=== PATIENT | male | born 1955 | race Caucasian/White ===

== ENCOUNTER 2018-11-03 08:44 | Day surgery (SDC) | payer BC ==
[2018-10-30 11:17] LABS: Absolute Monocytes 0.9 K/uL (0.1-1.3); Absolute Neutrophil 5.7 K/uL (1.8-8.0); Basophils % 0.6 % (0-1.3); Eosinophils % 2.1 % (0-4.4); Hematocrit 44.2 % (39.6-49.0); MPV 9.4 fL (7.6-11.3); RBC Red Blood Cell Count 4.82 M/uL (4.33-5.43)
[2018-10-30 11:22] LABS: Urine Appearance CLEAR; Urine Bilirubin NEGATIVE (NEG); Urine Blood 3+ (NEG); Urine Color YELLOW; Urine Glucose NEGATIVE (NEG); Urine Protein NEGATIVE (NEG); Urine Specific Gravity <=1.005 (1.005-1.030); Urine Urobilinogen 0.2 mg/dL (0.2-1.0)
[2018-10-30 11:24] LABS: Protime INR 1.04
--- NOTE | 2018-10-30 11:31 | RAD REPORT ---
EXAM DESCRIPTION: Dayna Forrest (2 Views)10/30/2018 11:22 am CLINICAL HISTORY: Preop for bladder surgery/hypertension COMPARISON: None FINDINGS: The lungs appear clear of acute infiltrate. The heart is normal size IMPRESSION: No acute abnormalities displayed
[2018-10-30 12:07] LABS: Urine Bacteria <20 /HPF (NONE SEEN)
[2018-10-30 12:08] LABS: Urine Culture Reflex Order NOT NEEDED
--- NOTE | 2018-10-31 09:05 | EKG ---
Test Date: 2018-10-30 Test Time: 11:06:40 Commercial Loan Specialist: MAG MEASUREMENT RESULTS: Intervals: Rate: 59 WI: 142 QRSD: 90 QT: 408 QTc: 403 [place]: P: 66 WI: 142 QRS: 62 T: 56 INTERPRETIVE STATEMENTS: Sinus bradycardia Nonspecific T wave abnormality Abnormal ECG No previous ECG available for comparison Electronically Signed On 10-31-18 09:01:14 CDT by Alexey Valderrama
[2018-11-03] MEDS ORDERED: GENTAMICIN 80 MG/100 ML BAG 80 MG/100 ML BAG IV ONE (09:33)
[2018-11-03] MEDS ORDERED: Ringers Lactate 1,000 ML IV ONE ×2 (09:33→13:02)
[2018-11-03] MEDS ORDERED: mitoMYcin 40 MG/50 ML SWI SYR IRR ONE (10:00)
[2018-11-03] MEDS ORDERED: FENTANYL CITR 100 MCG/2 ML ONE ×2 (11:33→12:37)
[2018-11-03] MEDS ORDERED: PROPOFOL 200 MG/20 ML VIAL IV ONE (11:34)
[2018-11-03] MEDS ORDERED: MIDAZOLAM HCL 2 MG/2 ML INJ ONE (11:35)
[2018-11-03] MEDS ORDERED: ONDANSETRON 4 MG/2 ML VIAL ONE (11:35)
[2018-11-03] MEDS ORDERED: LIDOCAINE 1% MPF 5 ML VIAL ONE ×2 (11:35)
[2018-11-03] MEDS ORDERED: MEPERIDINE HCL 25 MG/0.5 ML ONE ×2 (13:45→13:59)
[2018-11-03] MEDS ORDERED: HYDROCODONE/APAP 7.5/325 MG TAB ONE (14:41)
[2018-11-03] MEDS ORDERED: OXYBUTYNIN CHLORIDE 5 MG TAB ONE (15:08)
== END 2018-11-03 15:27 | disposition home or self-care (01) ==
LOC: OR 08:44
PROVIDERS: ATTEND Urology
PROC: 3E0K805 Introduction of Other Antineoplastic into Genitourinary Tract, Via Natural or Artificial Opening Endoscopic (ICD-10-PCS; 2018-11-03)
PROC: 0TBB8ZX Excision of Bladder, Via Natural or Artificial Opening Endoscopic, Diagnostic (ICD-10-PCS; principal; 2018-11-03 10:00)
DX: C67.9 Malignant neoplasm of bladder, unspecified (principal); I10 Essential (primary) hypertension; F17.210 Nicotine dependence, cigarettes, uncomplicated; Z79.899 Other long term (current) drug therapy; Z86.73 Personal history of transient ischemic attack (TIA), and cerebral infarction without residual deficits
CPT/HCPCS: 36415; 71046; 80048; 81001; 85025; 85610; 85730; 88305; 93005; J1580; J2175; J2250; J2405; J2704; J3010; J9280

== ENCOUNTER 2019-09-21 12:33 | Inpatient (IN) | payer BC ==
--- OUTSIDE RECORDS SUMMARY | 2019-09-21 12:36 | XMS REPORT ---
:1955 Author Organization [facility] t Address [address] [place] [address] Care Team Providers Name Role Phone PAYTON Unavailable Unavailable Problems This patient has no known problems. Allergies, Adverse Reactions, Alerts This patient has no known allergies or adverse reactions. Medications This patient has no known medications. Results Test Description Test Time Test Comments Text Results Atomic Results Result Comments TISSUE EXAM 2019-03-17 17:15:00 Surgical Pathology Re port Case: [id number] Authorizing Provider: Juan Michel MD Collected: [id number] Ordering Location: [facility] Received: 019 0845 SERVICE S Pathologist: Jaycob Esquivel MD Specimens: A) - Bladder Bi opsy, left side blader biopsy B) - Bladde r Biopsy, Dome, right bladder dome A. BLADDER, LEFT WALL, BIO PSY - MILD CHRONIC INFLAMMATION, NEGATIVE FOR D YSPLASIA OR MALIGNANCYA. BLADDER, RIGHT DOME, BIOPSY - MILD CHRONIC INFLAMMATION, NEGATI VE FOR DYSPLASIA OR MALIGNANCY Signing Path ologist Direct Phone Line: [phone] ally signed by Jaycob Dan MD on 03/17/2019 at 5:15 [id number] X 2Pre and post op diagnosis: malignant neoplasm of overla pping site of bladderA. Left side bladder biopsy; B. Right bladder dome biopsyA. Receiv ed in formalin labeled with the patient's n dennis, accession number and "left side bladder biops y" are four irregular gay-pink nodular tissue rang ing 0.3-0.5 cm which are submitted in toto in A1. B. Received in formalin labeled with the pa rosaline's name, accession number and "bladde r dome biopsy" are two irregular gay nodular ti ssue fragments measuring 0.4 cm and 0.2 cm which are submitted in toto in B1. CG/pl Perform ed. CYTOLOGY 2019-03-16 13:23:00 Medical Cytology Repo rt Case: [id number] Authorizing Provider: Juan Michel MD Collected: 161 Ordering Location: [facility] Received: 0954 SERVICE S Pathologist: Genie Ray MD Specimen: Urine, Bladder Wash URINE, BLADDER WASHING (CYTO SPINS): - NEGATIVE FOR HIGH-GRADE UROTHELIAL MA LIGNANCY - MANY CELL CLUSTERS PRESENT S igning Pathologist Direct Phone Line: [phone] of N MIBC & residual lesion on repeat cystoURINE, BLADDER [id number] mls colorless; 4 cytospinsCo llected: [id number]: [id number] actoryB[facility], [facility] t[facility] of [facility], [address] [place] [address], [facility], [address] [place] [address], [facility], [facility], [address] [place], [place] [id number], CYTOLOGY REQUEST 2019-03-16 11:00:00 Test Item Value Reference Range Comments CYTOLOGY RESULT POINTER (BEAKER) (test code = 2629) See Separate Report [id number] 13:20:00 Test Item Value Reference Range Comments SODIUM (BEAKER) (test code = 136 meq/L 136-145 381) POTASSIUM (BEAKER) (test code = 4.4 meq/L 3.5-5.1 Specimen slightly hemolyzed 379) CHLORIDE (BEAKER) (test code = 105 meq/L 98-107 382) CO2 (BEAKER) (test code = 355) 24 meq/L 22-29 BUN AND [id number] 13:20:00 Test Item Value Reference Range Comments BLOOD UREA NITROGEN 21 mg/dL 7-21 (BEAKER) (test code = 354) CREATININE (FAUZIA) (test 0.94 mg/dL 0.57-1.25 Specim en slightly code = 358) hemolyzed EGFR (FAUZIA) (test code 81 mL/min/1.73 sq m EST IMATED GFR IS NOT = 1092) ACCURATE CREA TININE CLEARANCE IN PRE DICTING GLOMERULAR FILTR ATION RATE. ESTIMATED GFR IS NOT APPLICABLE F OR DIALYSIS PATIENT S. POCT-HEMOGLOBIN [id number] 12:57:00 Test Item Value Reference Range Comments POC-HEMOGLOBIN METER 14.2 g/dL 13.0-16.8 TESTED AT [facility] [address] (FAUZIA) (test code = 1539) [facility] [id number]
[2019-09-21 12:59] LABS: Basophils % 1.3 % (0-1.3); Hematocrit 44.8 % (39.6-49.0); Lymphocytes % 21.9 % (15.3-44.8); MPV 9.1 fL (7.6-11.3); RBC Red Blood Cell Count 4.89 M/uL (4.33-5.43)
[2019-09-21 13:03] LABS: Protime INR 1.01
[2019-09-21 13:10] LABS: BUN Blood Urea Nitrogen 18 mg/dL (7-18); Bicarbonate 27 mmol/L (21-32); Glucose Level 121 mg/dL (74-106); Potassium 4.4 mmol/L (3.5-5.1); Sodium Level 139 mmol/L (136-145); Troponin (Emerg Dept Use Only) < 0.02 ng/mL (0.0-0.045)
--- NOTE | 2019-09-21 13:12 | RAD REPORT ---
EXAM DESCRIPTION: CT - Head C Spine Mpr Wo Con - 09/21/2019 12:56 pm CLINICAL HISTORY: Right arm numbness COMPARISON: None. TECHNIQUE: Computed axial tomography of the head and cervical spine was obtained. Sagittal and coronal reconstruction was performed. All CT scans are performed using dose optimization technique as appropriate and may include automated exposure control or mA/KV adjustment according to patient size. FINDINGS: Moderate low-density is present within deep and subcortical white matter bilaterally proba franc ischemic changes secondary to small vessel disease. A 17 millimeter low-density area is present within the centrum semiovale of the left frontal lobe. An intracranial bleed is not seen. The ventricles are normal in caliber. An extra-axial fluid collect ion is not noted.Fluid within the visualized sinuses and mastoids is not seen A cervical fracture is not visualized. No dislocation is noted. Spondylosis involves C4-5 resulting i n marked right foraminal stenosis. Spondylosis involves C5-6 and C6-7 resulting in moderate foraminal stenosis. IMPRESSION: A 17 millimeter low-density area within the centrum semiovale of the left frontal lobe p robably an infarct. The age is indeterminate. If clinically indicated further evaluation with MRI cou ld be obtained Moderate low-density within deep and subcortical white matter probably ischemic changes secondary to small vessel disease Spondylosis C4-5 resulting in marked right foraminal stenosis
--- NOTE | 2019-09-21 13:23 | RAD REPORT ---
EXAM DESCRIPTION: Dayna Single View09/21/2019 1:18 pm CLINICAL HISTORY: Numbness/weakness COMPARISON: 2018 FINDINGS: The lungs appear clear of acute infiltrate. The heart is normal size IMPRESSION: No acute abnormalities displayed
--- NOTE | 2019-09-21 13:46 | EDPHYS ---
Physician Documentation [facility] Name: Emil Salazar Jr Age: 64 yrs Sex: Male : 1955 Arrival Date: 09/21/2019 Time: 12:37 Bed 5 Private MD: ED Physician Reymundo Patel HPI: 09/20 12:48 This 64 yrs old Male presents to ER via EMS with complaints of Numbness Of rn Hand, Weakness. 12:49 The patient presents to the emergency department with weakness of the right upper rn extremity, paresthesias of the right upper extremity. Onset: The symptoms/episode began/occurred yesterday. Severity of symptoms: At their worst the symptoms were mild in the emergency department the symptoms are unchanged. The patient has experienced a previous episode. Reports RUE weakness and numbness, began yesterday, constant, reports started in hand and spread upwards, no acute vision or speech changes, no difficulty walking. Reports difficulty drinking due to coordination/and or weakness of hand. . Historical: - Allergies: 12:43 No Known Allergies; sv - Home Meds: 12:43 Lisinopril Oral [Active]; sv - PMHx: 12:43 CVA; Hypertension; sv - Immunization history:: Adult Immunizations. - Family history:: not pertinent. - Social history:: Smoking status: . - Hospitalizations: : No recent hospitalization is reported. ROS: 12:49 Constitutional: Negative for fever, chills, and weight loss, Eyes: Negative for injury, rn pain, redness, and discharge, Neck: Negative for injury, pain, and swelling, Cardiovascular: Negative for chest pain, palpitations, and edema, Respiratory: Negative for shortness of breath, cough, wheezing, and pleuritic chest pain, Abdomen/GI: Negative for abdominal pain, nausea, vomiting, diarrhea, and constipation, MS/Extremity: Negative for injury and deformity, Skin: Negative for injury, rash, and discoloration, Neuro: Negative for headache, and seizure. Exam: 12:49 Constitutional: This is a well developed, well nourished patient who is awake, alert, rn and in no acute distress. Hopped out of stretcher and walked to bed. Head/Face: Normocephalic, atraumatic. Eyes: Pupils equal round and reactive to light, extra-ocular motions intact. Lids and lashes normal. Conjunctiva and sclera are non-icteric and not injected. Cornea within normal limits. Periorbital areas with no swelling, redness, or edema. ENT: MMM Cardiovascular: Regular rate and rhythm. No pulse deficits. Respiratory: No increased work of breathing, no retractions or nasal flaring. Abdomen/GI: soft, non-tender Skin: Warm, dry with normal turgor. Normal color with no rashes, no lesions, and no evidence of cellulitis. MS/ Extremity: Pulses equal, no cyanosis. Neuro: Awake and alert, GCS 15, oriented to person, place, time, and situation. Cranial nerves II-XII grossly intact. Motor strength 5/5 in all extremities without drift. Decreased sensation RUE to soft touch and sharp touch. + abnormal coordination on right [id number] and COURTNEY Vital Signs: 12:35 BP 159 / 87; Pulse 63; Resp 12; Temp 98; Pulse Ox 97% ; Pain 0/10; sv 13:37 BP 140 / 83; Pulse 59; Resp 16; Pulse Ox 99% ; sv 14:00 BP 138 / 78; Pulse 57; Resp 16; Pulse Ox 98% ; sv 15:26 BP 130 / 63; Pulse 45; Resp 15; Pulse Ox 100% ; sv 16:30 BP 144 / 90; Pulse 69; Resp 15; Pulse Ox 99% ; sv 17:16 BP 125 / 60; Pulse 60; Resp 17; Pulse Ox 96% ; sv 18:30 BP 140 / 78; Pulse 62; Resp 16; Pulse Ox 97% ; sv 19:29 BP 136 / 78; Pulse 58; Resp 18; Temp 98(O); Pulse Ox 97% on R/A; mg2 NIH Stroke Scale Scores: 12:37 NIHSS Score: 2 sv MDM: 12:38 Patient medically screened. rn 13:42 Data reviewed: vital signs, nurses notes, lab test result(s), EKG, radiologic studies, rn and as a result, I will admit patient. Counseling: I had a detailed discussion with the patient and/or guardian regarding: the historical points, exam findings, and any diagnostic results supporting the discharge/admit diagnosis, lab results, radiology results, the need for further work-up and treatment in the hospital. Admission orders: after a detailed discussion of the patient's condition and case, the admit orders are written by me. ED course: Pt with left sided lesion, appears like age indeterminate stroke, will admit for stroke w/u. Given aspirin/plavix/folic acid. . 09/20 12:39 Order name: Troponin (emerg Dept Use Only); Complete Time: 13:12 rn 09/20 12:39 Order name: Basic Metabolic Panel; Complete Time: 13:12 rn 09/20 12:39 Order name: CBC with Diff; Complete Time: 13:12 rn 09/20 12:39 Order name: Protime (+inr); Complete Time: 13:12 rn 09/20 12:39 Order name: Ptt, Activated; Complete Time: 13:12 rn 09/20 12:52 Order name: Glucose, Ancillary Testing; Complete Time: 13:12 EDKY 09/20 12:39 Order name: XRAY Chest (1 view); Complete Time: 13:26 rn 09/20 14:12 Order name: CBC with Automated Diff EDKY 09/20 14:12 Order name: CBC with Automated Diff EDKY 09/20 14:12 Order name: Comprehensive Metabolic Panel EDKY 09/20 14:12 Order name: Comprehensive Metabolic Panel EDKY 09/20 14:14 Order name: Thyroid Stimulating Hormone EDKY 09/20 14:14 Order name: Lipid Profile EDKY 09/20 14:14 Order name: Lipid Profile EDKY 09/20 12:39 Order name: EKG; Complete Time: 12:40 rn 09/20 12:39 Order name: Accucheck; Complete Time: 12:45 rn 09/20 12:39 Order name: Cardiac monitoring; Complete Time: 12:45 rn 09/20 12:39 Order name: CT Head C Spine; Complete Time: 13:26 rn 09/20 14:06 Order name: Brain With Cont EDKY 09/20 14:11 Order name: CONS Pharmacy Consult EDKY 09/20 14:11 Order name: CONS Physician Consult EDKY 09/20 14:11 Order name: CONS Rehab Consult EDKY 09/20 14:12 Order name: Heart Healthy EDKY 09/20 14:14 Order name: Case Management Consult EDKY 09/20 14:14 Order name: Echo with Doppler EDKY 09/20 14:14 Order name: Carotid Artery Bilateral EDKY 09/20 15:30 Order name: MRI EDKY 09/20 12:39 Order name: EKG - Nurse/Tech; Complete Time: 12:45 rn 09/20 12:39 Order name: IV Saline Lock; Complete Time: 12:45 rn 09/20 12:39 Order name: Labs collected and sent; Complete Time: 12:45 rn 09/20 12:39 Order name: NPO; Complete Time: 12:45 rn 09/20 12:39 Order name: O2 Per Protocol; Complete Time: 12:45 rn 09/20 12:39 Order name: O2 Sat Monitoring; Complete Time: 12:45 rn 09/20 12:39 Order name: Stroke Swallow Screen; Complete Time: 12:45 rn Administered Medications: 13:54 Drug: Aspirin Chewable Tablet 243 mg {Note: pt already took an 81 mg today, ok to give sv [address] Patel.} Route: PO; 14:30 Follow up: Response: No adverse reaction sv 13:54 Drug: PlaVIX 75 mg Route: PO; sv 14:30 Follow up: Response: No adverse reaction sv 13:54 Drug: foLIC Acid 1 mg Route: PO; sv 14:30 Follow up: Response: No adverse reaction sv Disposition: 09/21/19 13:46 Hospitalization ordered by Azucena Tran for Inpatient Admission. Preliminary diagnosis are Weakness, Paresthesia of skin, Ischemic stroke left frontal lobe. - Bed requested for Telemetry/MedSurg (Inpatient). - Status is Inpatient Admission. mg2 - Condition is Stable. - Problem is new. - Symptoms are unchanged. NIH Stroke Scale - NIH Stroke Score Date: 09/21/2019 Time: 12:37 Total Score = 2 1a. Level of Consciousness (LOC) - 0(Alert) 1b. Level of Consciousness (LOC) (Year \T\ Age) - 0(Both) 1c. LOC Commands (Open \T\ Closes Eyes/Plumber) - 0(Both) 2. Best Gaze (Lateral Gaze Paresis) - 0(Normal) 3. Visual Field Loss - 0(No visual loss) 4. Facial Palsy - 0(Normal) 5a. Left Arm: Motor (10-second hold) - 0(No drift) 5b. Right Arm: Motor (10-second hold) - 0(No drift) 6a. Left Leg: Motor (5-second hold - always test supine) - 0(No drift) 6b. Right Leg: Motor (5-second hold - always test supine) - 0(No drift) 7. Limb Ataxia (finger/nose \T\ heel/montero - test with eyes open) - 1(Present in one limb) 8. Sensory Loss (pinprick arms/legs/face) - 1(Mild to moderate loss) 9. Best Language: Aphasia (description/naming/reading) - 0(No aphasia) 10. Dysarthria (speech clarity - read or repeat words) - 0(Normal) 11. Extinction and Inattention (visual/tactile/auditory/spatial/personal) - 0(No abnormality) Initials: sv Signatures: Dispatcher [employer] EDLaurence Hoyos RN RN sv Williams, Irene, RN RN iw Nieto, Roman, MD MD rn Gardose, Michele, RN RN mg2 Corrections: (The following items were deleted from the chart) 18:45 13:46 Hospitalization Ordered by Azucena Tran MD for Inpatient Admission. iw Preliminary diagnosis is Weakness; Paresthesia of skin; Ischemic stroke left frontal lobe. Bed requested for Telemetry/MedSurg (Inpatient). Status is Inpatient Admission. Condition is Stable. Problem is new. Symptoms are unchanged. rn 19:47 18:45 09/21/2019 13:46 Hospitalization Ordered by Azucena Tran MD for mg2 Inpatient Admission. Preliminary diagnosis is Weakness; Paresthesia of skin; Ischemic stroke left frontal lobe. Bed requested for Telemetry/MedSurg (Inpatient). Status is Inpatient Admission. Condition is Stable. Problem is new. Symptoms are unchanged. iw
--- NOTE | 2019-09-21 13:46 | ER ---
Nurse's Notes [facility] Name: Emil Salazar Jr Age: 64 yrs Sex: Male : 1955 Arrival Date: 09/21/2019 Time: 12:37 Bed 5 Private MD: Diagnosis: Weakness;Paresthesia of skin;Ischemic stroke left frontal lobe Presentation: 09/20 12:35 Chief complaint: EMS states: right hand weakness (curling) that started yesterday sv morning. BP 161/76. Coronavirus screen: Proceed with normal triage. Patient denies a cough. Patient denies shortness of breath or difficulty breathing. Patient denies measured and/or subjective temperature greater than 100.4F prior to today's visit. Patient denies travel on a cruise ship or to a country the [facility] currently lists as an affected area. Patient denies contact with known and/or suspected case of COVID-19. Ebola Screen: No symptoms or risks identified at this time. Initial Sepsis Screen: Does the patient meet any 2 criteria? No. Patient's initial sepsis screen is negative. Does the patient have a suspected source of infection? No. Patient's initial sepsis screen is negative. Risk Assessment: Do you want to hurt yourself or someone else? Patient reports no desire to harm self or others. Onset of symptoms was September 20, 2019. 12:35 Method Of Arrival: EMS: [facility] sv 12:35 Acuity: NELSON 3 sv Triage Assessment: 12:35 General: Appears in no apparent distress. comfortable, well developed, Behavior is sv calm, cooperative, appropriate for age. Pain: Denies pain. Neuro: Level of Consciousness is awake, alert, obeys commands, Oriented to person, place, time, situation, Moves all extremities. Full function Gait is steady, Speech is normal, Reports numbness in right arm weakness in right arm. Cardiovascular: Patient's skin is warm and dry. Rhythm is sinus rhythm. Respiratory: Airway is patent Respiratory effort is even, unlabored, Respiratory pattern is regular, symmetrical. Derm: Skin is normal. Historical: - Allergies: 12:43 No Known Allergies; sv - Home Meds: 12:43 Lisinopril Oral [Active]; sv - PMHx: 12:43 CVA; Hypertension; sv - Immunization history:: Adult Immunizations. - Family history:: not pertinent. - Social history:: Smoking status: . - Hospitalizations: : No recent hospitalization is reported. Screenin:37 VAN Screening: Arm Drift: Patient shows no arm weakness. Patient is VAN negative. sv 12:44 Abuse screen: Denies threats or abuse. Denies injuries from another. Nutritional sv screening: No deficits noted. Tuberculosis screening: No symptoms or risk factors identified. Fall Risk None identified. 12:45 Patient has been NPO before screening. The patient is alert, able to follow commands. sv The patient does not exhibit slurred or garbled speech The patient is not exhibiting difficulty speaking. The patient does not exhibit difficulty understanding words. The patient is able to swallow own secretions with no drooling or need for suction. Patient tolerated one teaspoon of water. No drooling, immediate coughing, gurgling, or clearing of the throat was noted. The patient tolerated 90mL of water. No drooling, immediate coughing, gurgling, or clearing of the throat was noted. The patient passed the bedside swallow screening. Oral medications may be given as ordered. Contact Physician for further diet orders. Provider notified of bedside swallow screening results: Reymundo Patel MD. Assessment: 13:54 Reassessment: Patient appears in no apparent distress at this time. No changes from sv previously documented assessment. Patient and/or family updated on plan of care and expected duration. Pain level reassessed. Patient is alert, oriented x 3, equal unlabored respirations, skin warm/dry/pink. 15:00 Reassessment: Patient appears in no apparent distress at this time. No changes from sv previously documented assessment. Patient and/or family updated on plan of care and expected duration. Pain level reassessed. Patient is alert, oriented x 3, equal unlabored respirations, skin warm/dry/pink. 16:44 Reassessment: Patient appears in no apparent distress at this time. No changes from sv previously documented assessment. Patient and/or family updated on plan of care and expected duration. Pain level reassessed. Patient is alert, oriented x 3, equal unlabored respirations, skin warm/dry/pink. Pt given food tray. 17:45 Reassessment: Patient appears in no apparent distress at this time. No changes from sv previously documented assessment. Patient and/or family updated on plan of care and expected duration. Pain level reassessed. Patient is alert, oriented x 3, equal unlabored respirations, skin warm/dry/pink. 18:40 Reassessment: Patient appears in no apparent distress at this time. No changes from sv previously documented assessment. Patient and/or family updated on plan of care and expected duration. Pain level reassessed. Patient is alert, oriented x 3, equal unlabored respirations, skin warm/dry/pink. Vital Signs: 12:35 BP 159 / 87; Pulse 63; Resp 12; Temp 98; Pulse Ox 97% ; Pain 0/10; sv 13:37 BP 140 / 83; Pulse 59; Resp 16; Pulse Ox 99% ; sv 14:00 BP 138 / 78; Pulse 57; Resp 16; Pulse Ox 98% ; sv 15:26 BP 130 / 63; Pulse 45; Resp 15; Pulse Ox 100% ; sv 16:30 BP 144 / 90; Pulse 69; Resp 15; Pulse Ox 99% ; sv 17:16 BP 125 / 60; Pulse 60; Resp 17; Pulse Ox 96% ; sv 18:30 BP 140 / 78; Pulse 62; Resp 16; Pulse Ox 97% ; sv 19:29 BP 136 / 78; Pulse 58; Resp 18; Temp 98(O); Pulse Ox 97% on R/A; mg2 NIH Stroke Scale Scores: 12:37 NIHSS Score: 2 sv ED Course: 11:35 ED physician to see patient. sv 12:35 Patient has correct armband on for positive identification. Placed in gown. Bed in low sv position. Call light in reach. Side rails up X2. monitoring tech on. Pulse ox on. NIBP on. Door closed. Head of bed elevated. 12:37 Patient arrived in ED. iw 12:38 Reymundo Patel MD is Attending Physician. rn 12:40 Laurence Arita RN is Primary Nurse. sv 12:40 Inserted saline lock: 20 gauge in right antecubital area, using aseptic technique. sv ,using aseptic technique. done by [facility] Blood collected. 12:42 Triage completed. sv 12:43 Arm band placed on. sv 12:49 EKG done, by ED staff, reviewed by Reymundo Patel MD. sv 12:56 CT Head C Spine In Process Unspecified. EDMS 13:18 XRAY Chest (1 view) In Process Unspecified. EDMS 13:45 Azucena Tran MD is Hospitalizing Provider. rn 14:20 Patient moved to MRI via wheelchair. sv 15:07 Awaiting bed assignment. sv 15:20 Patient moved back from [facility]. sv 19:03 Report given to Star GILBERT and Frantz GILBERT. sv 19:08 Primary Nurse role handed off by Laurence Arita RN sv 19:15 Frantz Person, OFELIA is Primary Nurse. rr5 19:30 No provider procedures requiring assistance completed. Patient admitted, IV remains in mg2 place. Administered Medications: 13:54 Drug: Aspirin Chewable Tablet 243 mg {Note: pt already took an 81 mg today, ok to give sv [address] Patel.} Route: PO; 14:30 Follow up: Response: No adverse reaction sv 13:54 Drug: PlaVIX 75 mg Route: PO; sv 14:30 Follow up: Response: No adverse reaction sv 13:54 Drug: foLIC Acid 1 mg Route: PO; sv 14:30 Follow up: Response: No adverse reaction sv Outcome: 13:46 Decision to Hospitalize by Provider. rn 19:35 Admitted to Med/surg accompanied by tech, via wheelchair, room 216, with chart, Report mg2 called to OFELIA Sanchez 19:35 Condition: stable 19:35 Instructed on the need for admit, Demonstrated understanding of instructions. 19:47 Patient left the ED. mg2 NIH Stroke Scale - NIH Stroke Score Date: 09/21/2019 Time: 12:37 Total Score = 2 1a. Level of Consciousness (LOC) - 0(Alert) 1b. Level of Consciousness (LOC) (Year \T\ Age) - 0(Both) 1c. LOC Commands (Open \T\ Closes Eyes/Screener And Blender Operator) - 0(Both) 2. Best Gaze (Lateral Gaze Paresis) - 0(Normal) 3. Visual Field Loss - 0(No visual loss) 4. Facial Palsy - 0(Normal) 5a. Left Arm: Motor (10-second hold) - 0(No drift) 5b. Right Arm: Motor (10-second hold) - 0(No drift) 6a. Left Leg: Motor (5-second hold - always test supine) - 0(No drift) 6b. Right Leg: Motor (5-second hold - always test supine) - 0(No drift) 7. Limb Ataxia (finger/nose \T\ heel/montero - test with eyes open) - 1(Present in one limb) 8. Sensory Loss (pinprick arms/legs/face) - 1(Mild to moderate loss) 9. Best Language: Aphasia (description/naming/reading) - 0(No aphasia) 10. Dysarthria (speech clarity - read or repeat words) - 0(Normal) 11. Extinction and Inattention (visual/tactile/auditory/spatial/personal) - 0(No abnormality) Initials: sv Signatures: Dispatcher [employer] Laurence Epps RN RN sv Betsy Eddy RN RN iw Reymundo Patel MD MD rn Gardose, Michele, RN RN mg2 Frantz Person RN RN rr5 Corrections: (The following items were deleted from the chart) 15:11 11:37 General: Appears in no apparent distress. comfortable, well developed, sv Behavior is calm, cooperative, appropriate for age, sv 15:11 11:37 Pain: Denies pain. sv sv 15: 11:37 Neuro: Level of Consciousness is awake, alert, obeys commands, Oriented sv to person, place, time, situation, Moves all extremities. Full function Gait is steady, Speech is normal, Reports numbness in right arm weakness in right arm sv 15: 11:37 Cardiovascular: Patient's skin is warm and dry. Rhythm is sinus rhythm sv sv 15: 11:37 Respiratory: Airway is patent Respiratory effort is even, unlabored, sv Respiratory pattern is regular, symmetrical, sv 15:11 11:37 Derm: Skin is normal, sv sv 15:13 11:45 Patient has correct armband on for positive identification. Placed in sv gown. Bed in low position. Call light in reach. Side rails up X2. sv 15: 11:45 monitoring tech on. Pulse ox on. NIBP on. sv sv 15: 11:45 Door closed. Head of bed elevated. sv sv 15:14 11:37 VAN Screening: Arm Drift: Patient shows no arm weakness. Patient is VAN sv negative. sv 15:14 11:37 NIHSS Score: 2 sv sv
[2019-09-21] MEDS ORDERED: FOLIC ACID 1 MG TABLET ONE (13:51)
[2019-09-21] MEDS ORDERED: CLOPIDOGREL 75 MG TABLET ONE (13:51)
[2019-09-21] MEDS ORDERED: ASPIRIN 81 MG CHEWABLE TABLET ONE (13:51)
[2019-09-21] MEDS ORDERED: MORPHINE 2 MG/ML SYR IV PRN (14:06)
[2019-09-21] MEDS ORDERED: ONDANSETRON 4 MG/2 ML VIAL IV PRN (14:06)
[2019-09-21] MEDS ORDERED: ALBUTEROL 2.5 MG/3 ML NEB SOL NEB PRN (14:06)
[2019-09-21] MEDS: ASPIRIN EC 81 MG TAB PO SCH (14:10)
[2019-09-21] MEDS ORDERED: HYDRALAZINE HCL 20 MG/ML VIAL IV PRN (14:11)
[2019-09-21] MEDS ORDERED: LORAZEPAM 0.5 MG TABLET PO PRN (14:11)
--- NOTE | 2019-09-21 14:34 | P.HP ---
Certification for Inpatient Patient admitted to: Observation With expected LOS: <2 Midnights Patient will require the following post-hospital care: Rehabilitation Practitioner: I am a practitioner with admitting privileges, knowledge of patient current condition, hospital course, and medical plan of care. Services: Services provided to patient in accordance with Admission requirements found in Title 42 Section 412.3 of the Code of Federal Regulations Patient History Date of Service: 09/21/19 Reason for admission: right arm weakness History of Present Illness: 64-year-old male with past medical history of hypertension, Hyperlipidemia, history of TIA with right arm weakness 3 years ago but resolved within 24hrs, he states he had MRI done at the time. No history of follow off or recurrence of weakness since then. He developed right arm weakness with poor coordination. Symptoms started initially with tingling and numbness which seems to have abated. Patient denies any facial droop . He denies any headache or dizziness. No weakness or tingling of the legs. He denies any neck pain. CT scan of the head and neck shows 17 mm hypodense lesion in the centrum semi ovale region of the left frontal lobe. Allergies No Known Allergies Allergy (Verified 10/30/18 10:44) Home Medications: atenoloL [Atenolol] 100 mg PO BID 10/30/18 lisinopriL [Lisinopril] 20 mg PO DAILY 10/30/18 Diltiazem HCl [Diltiazem ER] 90 mg PO DAILY 11/03/18 - Past Medical/Surgical History Has patient received pneumonia vaccine in the past: No Diabetic: No -: Hypertension -: Current tobacco use Past Surgical History: Patient denies surgical history - Family History Family History: Reviewed- Non-Contributory - Social History Smoking Status: Heavy Tobacco smoker (>10 cigarettes/day) Counseled patient to stop smoking for: more than 10 minutes Smoking therapy provided: Yes Patient receptive to therapy: No Alcohol use: No CD- Drugs: No Caffeine use: No Place of Residence: Home Review of Systems 10-point ROS is otherwise unremarkable Physical Examination - Physical Exam General: Alert, In no apparent distress, Oriented x3 HEENT: Atraumatic, Normocephalic, PERRLA Neck: Supple, 2+ carotid pulse no bruit, JVD not distended Cardiovascular: No edema, Normal pulses, Regular rate/rhythm, Normal S1 S2 Gastrointestinal: Normal bowel sounds, Soft and benign, Non-distended Musculoskeletal: No clubbing, No swelling Integumentary: No rashes, No breakdown Neurological: Normal speech, Sensation intact, Other (No differential weakness of the right upper extremity, power is 4 minus over 5, no noted pronator drift, mild impaired [id number] testing on the right side) - Studies Laboratory Data (last 24 hrs) 09/21/19 12:45: PT 11.9, INR 1.01, APTT 27.2 09/21/19 12:45: WBC 8.9, Hgb 15.1, Hct 44.8, Plt Count 183 09/21/19 12:45: Sodium 139, Potassium 4.4, BUN 18, Creatinine 1.13, Glucose 121 H Imagings Data: T - Head C Spine Mpr Wo Con - 09/21/2019 12:56 pm CLINICAL HISTORY: Right arm numbness COMPARISON: None. TECHNIQUE: Computed axial tomography of the head and cervical spine was obtained. Sagittal and coronal reconstruction was performed. All CT scans are performed using dose optimization technique as appropriate and may include automated exposure control or mA/KV adjustment according to patient size. FINDINGS: Moderate low-density is present within deep and subcortical white matter bilaterally probably ischemic changes secondary to small vessel disease. A 17 millimeter low-density area is present within the centrum semiovale of the left frontal lobe. An intracranial bleed is not seen. The ventricles are normal in caliber. An extra-axial fluid collection is not noted.Fluid within the visualized sinuses and mastoids is not seen A cervical fracture is not visualized. No dislocation is noted. Spondylosis involves C4-5 resulting in marked right foraminal stenosis. Spondylosis involves C5-6 and C6-7 resulting in moderate foraminal stenosis. IMPRESSION: A 17 millimeter low-density area within the centrum semiovale of the left frontal lobe probably an infarct. The age is indeterminate. If clinically indicated further evaluation with MRI could be obtained Moderate low-density within deep and subcortical white matter probably ischemic changes secondary to small vessel disease Spondylosis C4-5 resulting in marked right foraminal stenosis Assessment and Plan - Problems (Diagnosis) (1) CVA (cerebrovascular accident) Current Visit: Yes Status: Acute (2) HTN (hypertension) Current Visit: Yes Status: Acute (3) Tobacco abuse Current Visit: Yes Status: Acute Plan to discharge in: 24 Hours - Advance Directives Does patient have a Living Will: No Does patient have a Durable POA for Healthcare: No Physician Review: Patient Assessed, Agree with Above Assessment and Plan Physician Review Additional Text: # left CVA-with right arm weakness -will obtain MRI of the brain to further evaluate the left frontal lobe lesion -will consult P.T./OT as well as rehab -start and continue aspirin -will obtain echocardiogram, carotid ultrasound as well as lipid panel -obtain neurology evaluation Hypertension-obtain home meds, avoid hypotension Chronic tobacco use-cessation advice, start nicotine patch DVT prophylaxis-subcutaneous heparin Disposition-possible Dc to rehab in a.m. or home Critical Care: No Time Spent Managing Pts Care (In Minutes): 65
--- NOTE | 2019-09-21 15:24 | RAD REPORT ---
EXAM DESCRIPTION: MRI - Brain W/Wo Cont - 09/21/2019 3:02 pm CLINICAL HISTORY: Right-sided numbness COMPARISON: September 21, [address] TECHNIQUE: Axial, sagittal, and coronal magnetic images of the brain were obtained. 20 cc MultiHance administered intravenously FINDINGS: Moderate to marked signal within deep and subcortical white matter probably ischemic grossman es secondary to small vessel disease. A demyelinating process is another consideration. The ventricles are normal in caliber. Diffusion-weighted/ ADC mapping sequences demonstrate 1.8 x 0.4 millimeter serpiginous abnormal signa l within the left parietal lobe. There are multiple additional small areas of abnormal signal within the posterior left frontal lobe and the left parietal lobe. These areas measure a few millimeters. No abnormal enhancement within the brain is seen. An extra-axial fluid collection is not noted. Fluid within the sinuses/mastoids is not seen IMPRESSION: Acute infarction involving the left frontal and left parietal lobes. Given the appearanc e and distribution these may be secondary to emboli from either the heart or carotid artery
--- NOTE | 2019-09-21 15:42 | RAD REPORT ---
EXAM DESCRIPTION: USCarotid Artery Bilateral09/21/2019 3:23 pm CLINICAL HISTORY: cva COMPARISON: None FINDINGS: The velocity of the right internal carotid artery equals 94 cm/sec. The right ICA/CCA rati o 1.6. Mild plaque within the left internal carotid artery. The velocity of the left internal carotid artery equals 544 cm/sec. The left ICA/CCA ratio 7.4. Sever e plaque within the proximal to mid left internal carotid artery. The vertebral arteries demonstrate antegrade flow IMPRESSION: Severe plaque within the left internal carotid artery NASCET criteria used. Mild 0-49% stenosis Moderate 50-69% stenosis Severe 70-99% stenosis
[2019-09-21 20:23] VITALS: O2SAT 97
[2019-09-21] MEDS ORDERED: ATENOLOL 100 MG PO SCH (21:00)
[2019-09-21] MEDS ORDERED: atenoloL 50 MG TAB PO SCH (21:00)
[2019-09-21] MEDS: NICOTINE 21 MG/PAT TD SCH (21:40)
[2019-09-21] MEDS: ENOXAPARIN 40 MG/0.4 ML SQ SCH (21:40)
[2019-09-21 21:54] VITALS: BMI 22.8
[2019-09-22 04:33] LABS: Absolute Lymphocytes (CBC) 3.1 K/uL (0.7-4.9); Basophils % 0.7 % (0-1.3); Hematocrit 40.9 % (39.6-49.0); Lymphocytes % 39.3 % (15.3-44.8); MPV 9.3 fL (7.6-11.3); RBC Red Blood Cell Count 4.42 M/uL (4.33-5.43)
[2019-09-22 04:56] LABS: Albumin 3.3 g/dL (3.4-5.0); Bilirubin Total 0.4 mg/dL (0.2-1.0); Potassium 4.1 mmol/L (3.5-5.1); Protein, Total 6.5 g/dL (6.4-8.2)
[2019-09-22] MEDS: NICOTINE 21 MG/PAT TD SCH (09:30)
[2019-09-22] MEDS: lisinopriL 20 MG TAB PO SCH (09:32)
[2019-09-22] MEDS: ENOXAPARIN 40 MG/0.4 ML SQ SCH (09:33)
[2019-09-22] MEDS: ASPIRIN EC 81 MG TAB PO SCH (09:33)
--- NOTE | 2019-09-22 13:07 | P.PN ---
Subjective Date of Service: 09/22/19 Chief Complaint: right arm weakness Subjective: No new changes, No C/O voiced (States no change with right arm poor coordination. Strength remained same -seen ambulating in his room) Physical Examination - Vital Signs Temperature: 97.5 F Blood Pressure: 148/79 Pulse: 59 Respirations: 16 Pulse Ox (%): 97 - Physical Exam General: Alert, In no apparent distress, Oriented x3 HEENT: Atraumatic, Normocephalic, PERRLA Neck: Supple, 2+ carotid pulse no bruit, JVD not distended Respiratory: Clear to auscultation bilaterally, Normal air movement Gastrointestinal: Normal bowel sounds, Soft and benign, Non-distended Musculoskeletal: No clubbing, No swelling External genitalia: No edema, No lesions - Studies Laboratory Data (last 24 hrs) 09/22/19 04:09: Sodium 138, Potassium 4.1, BUN 16, Creatinine 1.06, Glucose 103, Total Bilirubin 0.4, AST 16, ALT 27, Alkaline Phosphatase 67, Triglycerides 225 H, Cholesterol 145, HDL Cholesterol 48, Cholesterol/HDL Ratio 3.02 09/22/19 04:09: WBC 7.8, Hgb 13.8, Hct 40.9, Plt Count 158 09/21/19 12:45: PT 11.9, INR 1.01, APTT 27.2 09/21/19 12:45: WBC 8.9, Hgb 15.1, Hct 44.8, Plt Count 183 09/21/19 12:45: Sodium 139, Potassium 4.4, BUN 18, Creatinine 1.13, Glucose 121 H Assessment And Plan - Current Problems (Diagnosis) (1) CVA (cerebrovascular accident) Current Visit: Yes Status: Acute (2) HTN (hypertension) Current Visit: Yes Status: Acute (3) Tobacco abuse Current Visit: Yes Status: Acute Physician Review Additional Text: # left CVA-with mild right arm weakness -MRI shows left small lesions on frontal/ parietal CVA, carotid ultrasound with significant left artery stenosis -follow P.T./OT eval - c/w started Aspirin , will add Plavix since carotid artery stenosis - awaiting lipid panel and an echocardiogram -we start empirical starting -will arrange for outpatient vascular surgery evaluation. Patient will need left carotid endarterectomy if normal echocardiogram -follow neurology evaluation today Hypertension-borderline controlled, continue lisinopril, will restart home atenolol bed status reduced dose of 25 mg daily Chronic tobacco use-continue nicotine patch, status post cessation discussed DVT prophylaxis-subcutaneous heparin Disposition-possible home today or in am if normal echo
[2019-09-22] MEDS: atenoloL 25 MG TAB PO SCH (14:30)
[2019-09-22] MEDS: CLOPIDOGREL 75 MG TABLET PO SCH (14:30)
--- NOTE | 2019-09-22 15:53 | P.DS ---
Admission Date: 09/22/19 Discharge Date: 09/22/19 Disposition: DC HOME/HOME HEALTH CARE Discharge Condition: FAIR Reason for Admission: right arm weakness - Problems (1) CVA (cerebrovascular accident) Current Visit: Yes Status: Acute (2) HTN (hypertension) Current Visit: Yes Status: Acute (3) Tobacco abuse Current Visit: Yes Status: Acute Brief History of Present Illness: 64-year-old male with past medical history of hypertension, Hyperlipidemia, history of TIA with right arm weakness 3 years ago but resolved within 24hrs, he states he had MRI done at the time. No history of follow off or recurrence of weakness since then. He developed right arm weakness with poor coordination. Symptoms started initially with tingling and numbness which seems to have abated. Patient denies any facial droop . He denies any headache or dizziness. No weakness or tingling of the legs. He denies any neck pain. CT scan of the head and neck shows 17 mm hypodense lesion in the centrum semi ovale region of the left frontal lobe. Hospital Course: Patient admitted for presumed CVA. He had an MRI done that showed evidence of punctate lesions in the left frontal and parietal area as worrisome for embolic source. He had an echocardiogram done that shows no vegetation. Carotid ultrasound shows significant stenosis of the left carotid artery. He was evaluated by Neurology. It was felt patient needed an an intervention of the Amrita days actress stenosis to avoid for the CV. Case was discussed in detail with the patient. I was able to arrange and discussed with Dr. Wily Graff- vascular surgery at [facility]. Appointment for within 1 week has been scheduled for patient but patient is to call the office to get a specific time. Address and phone number provided to patient. Patient expressed understanding. He will be discharged on to the on combined aspirin and Plavix, statin as well as adjusted blood pressure medications. Need for tobacco cessation was discussed in detail. He was provided with prescription for nicotine patch. Vital Signs/Physical Exam: Temp Pulse Resp BP Pulse Ox 97.5 F 59 16 148/79 H 97 09/22/19 13:08 09/22/19 14:30 09/22/19 13:08 09/22/19 14:30 09/22/19 13:08 General: Alert, In no apparent distress, Oriented x3, Cooperative HEENT: Atraumatic, Normocephalic, PERRLA Neck: Supple, 2+ carotid pulse no bruit, JVD not distended Respiratory: Clear to auscultation bilaterally, Normal air movement Cardiovascular: No edema, Normal pulses, Regular rate/rhythm, Normal S1 S2 Capillary refill: <2 Seconds Gastrointestinal: Normal bowel sounds, Soft and benign, Non-distended, W/out succussion splash Musculoskeletal: No clubbing, No swelling Integumentary: No rashes, No breakdown Neurological: Normal speech, Normal strength at 5/5 x4 extr, Cranial nerves 3-12 intact External genitalia: No edema, No lesions Laboratory Data at Discharge: WBC 7.8 K/uL (4.3-10.9) 09/22/19 04:09 Hgb 13.8 g/dL (13.6-17.9) 09/22/19 04:09 Hct 40.9 % (39.6-49.0) 09/22/19 04:09 Plt Count 158 K/uL (152-406) 09/22/19 04:09 PT 11.9 SECONDS (9.5-12.5) 09/21/19 12:45 INR 1.01 09/21/19 12:45 APTT 27.2 SECONDS (24.3-36.9) 09/21/19 12:45 Sodium 138 mmol/L (136-145) 09/22/19 04:09 Potassium 4.1 mmol/L (3.5-5.1) 09/22/19 04:09 BUN 16 mg/dL (7-18) 09/22/19 04:09 Creatinine 1.06 mg/dL (0.55-1.3) 09/22/19 04:09 Glucose 103 mg/dL (74-106) 09/22/19 04:09 Total Bilirubin 0.4 mg/dL (0.2-1.0) 09/22/19 04:09 AST 16 U/L (15-37) 09/22/19 04:09 ALT 27 U/L (12-78) 09/22/19 04:09 Alkaline Phosphatase 67 U/L (45-117) 09/22/19 04:09 Triglycerides 225 mg/dL (<150) H 09/22/19 04:09 Cholesterol 145 mg/dL (<200) 04/29/20 04:09 HDL Cholesterol 48 mg/dL (40-60) 09/22/19 04:09 Cholesterol/HDL Ratio 3.02 09/22/19 04:09 Home Medications: Aspirin [Aspirin EC 81 MG] 81 mg PO DAILY #30 tablet. 09/22/19 Atorvastatin Calcium [Lipitor*] 20 mg PO BEDTIME #30 tab 09/22/19 Clopidogrel Bisulfate [Plavix*] 75 mg PO DAILY #30 tablet 09/22/19 Nicotine [Nicoderm*] 21 mg TD DAILY #14 patch.td24 09/22/19 atenoloL [Tenormin*] 50 mg PO [id number] #30 tab 09/22/19 lisinopriL [Prinivil*] 20 mg PO DAILY 09/22/19 New Medications: Aspirin [Aspirin EC 81 MG] 81 mg PO DAILY #30 tablet. Atorvastatin Calcium [Lipitor*] 20 mg PO BEDTIME #30 tab Nicotine [Nicoderm*] 21 mg TD DAILY #14 patch.td24 Clopidogrel Bisulfate [Plavix*] 75 mg PO DAILY #30 tablet atenoloL [Tenormin*] 50 mg PO [id number] #30 tab Patient Discharge Instructions: -follow up with Dr. Wily Graff-vascular surgery at [facility] in 2-3 days. -call the office for appointment if you do not call any call from them in next 24 hrs Diet: Low sodium Activity: Ad ashley Time spent managing pt's care (in minutes): 35
--- NOTE | 2019-09-22 18:08 | EKG ---
Test Date: 2019-09-21 Test Time: 12:47:24 Marketing Mgr: CRYSTAL MEASUREMENT RESULTS: Intervals: Rate: 64 WA: 158 QRSD: 82 QT: 382 QTc: 394 [place]: P: 56 WA: 158 QRS: 67 T: 41 INTERPRETIVE STATEMENTS: Normal sinus rhythm Septal infarct, age undetermined Abnormal ECG Compared to ECG 10/30/2018 11:06:40 Myocardial infarct finding now present Sinus bradycardia no longer present T-wave abnormality no longer present Electronically Signed On 09-22-19 18:06:39 CDT by Alexey Valderrama
--- NOTE | 2019-09-22 19:19 | CON ---
Reason For Consultation: Consultation called by hospitalist because of stroke. History Of Present Illness: Mr. Salazar is a 64-year-old patient with multiple stroke risk f actors including hypertension, dyslipidemia, prior stroke with resolution, and chronic heavy tobacco use, who comes into the [facility] with right face and arm weakness and tingling and numbnes s. He denied right lower extremity weakness. He denied changes in speech or swallowing difficulties . He came to [facility] on 09/21/2019, arriving at 12:37 and noted that his symptoms began the day before. Therefore, he was not in the window for tissue plasminogen activator. His head CT s can time noted at 12:56 did identify a 17 mm low-density area in the centrum semiovale in the left frontal lobe, which is probably felt to be an infarct with age was indeterminate. The findi ng of a possible indeterminate age stroke suggested that the patient was beyond the 4-hour window and this is consistent with his symptoms starting the day before. Also, there was moderate low density deep and subcortical white matter ischemic changes secondary to small-vessel disease. Further, there was marked right foraminal stenosis at C4, C5. He was taking aspirin daily, but at hospital, Plavix , folic acid, and statin along with DVT prophylaxis were added. He said he was taking lisinopril for blood pressure prior to coming to the hospital. Following day yesterday, MRI of the brain identifie d strokes in the left hemisphere involving the left frontal and parietal lobes in small areas in mult iple distributions and addition, his left internal carotid artery was found to be very stenotic and i t was felt that the source of the multiple strokes were the internal carotid artery as that is the ob vious high-grade area of stenosis. The patient did smoke heavily as well and that is a risk factor. His carotid artery ultrasound did identify severe plaque in the left internal carotid artery. The r ight side was essentially okay with ICA/CCA ratio of 1.6. In terms of his deficits, he said he has r ecovered significantly. The strength in the right hand and right face, there is still tingling, but there is loss of dexterity and still [id number] weakness in the right hand. Past Medical History: Hypertension, transient ischemic attack, chronic tobacco dependency, and strok e with good resolution. Allergies: NO KNOWN DRUG ALLERGIES. Home Medications: Lisinopril. Social History: He drink in the past and smoking currently. Family History: No stroke in family. Review of Systems: He denies any recent fevers, chills, nausea, vomiting, myalgias, arthralgias, headache, weight change , rash, psychiatric issues, gastrointestinal or genitourinary issues. Physical Examination: Vital Signs: Blood pressure 148/79, pulse 59, temperature 97.5, respiratory rate 16, oxygen saturati ons 97%. Weight 155 pounds, height 5 feet 9 inches. General: Mr. Salazar is in bed, able to get out of bed and walk around. He is in no acute distress. He does appears somewhat older than stated age. HEENT: He is normocephalic, atraumatic. Sclerae anicteric. Oropharynx is moist and pink. Neck: Supple. Chest: Clear. Heart: Regular. Extremities: Show no edema, cyanosis, or clubbing. Neurologic: Alert, oriented to situation, place, and person. Follows commands appropriately. His c ranial nerve examination reveals subtle decrease sensation in the right versus left face in V1, V2, V 3. Otherwise, face appears symmetric, although potentially there is a subtle decrease in the right n asolabial fold, but he has good excursions and smiling. He has very poor dentition, missing several teeth. Motor examination in the upper extremity, no proximal weakness appreciated. Distally, hand g rip is 4/5 and there is decreased dexterity in the right hand and the lower extremity bilaterally 5/5 proximally and distally. Sensory exam decreased somewhat to light touch subtly in the right compare d to left side and his legs have normal sensation bilaterally. Reflexes, depressed symmetrically in the upper and lower extremities. Coordination is intact in the upper and lower extremities. His gay dem gait is intact. His NIH Stroke Scale of 2. Laboratory Studies: Complete blood count with differential is completely normal twice. His coagulat ion panel is normal. Chemistries all unremarkable. Glucose ranged from 103 to 134. His liver funct ion studies are normal. HDL cholesterol is 48, LDL cholesterol 52, total cholesterol 145. TSH 1.14. His chest x-ray shows no acute abnormalities. Assessment: Mr. Salazar is a 64-year-old patient with high-grade left internal carotid artery stenosis , the likely source for thromboembolic strokes to his left parietal and frontal lobes in multiple sub -vascular territories. He has a history of smoking. Does report taking an aspirin daily, not sure o f compliance and he has hypertension. Plan: 1.Aspirin along with Plavix 75 mg and aspirin 81 mg, folate 1 mg daily, also Lipitor 20 mg at bedtim e. Apresoline as needed. Prinivil 20 mg daily. He is also on atenolol 25 mg daily[address] patient st rongly advised to stop smoking cigarettes. 2.Information was given for the patient to have an appointment with the neuro interventionalist at [facility] in [place] for acute an angioplasty and stent procedure in his left internal carotid artery for his high-grade internal carotid artery stenosis. He may follow up with Dr. Andrade in 1 month after his procedure. MERRITT/MARY Voice ID: [id number] Report ID: [id number]
[2019-09-22] MEDS ORDERED: ATORVASTATIN 20 MG TAB PO SCH (21:00)
[2019-09-23] MEDS: atenoloL 25 MG TAB PO SCH (06:08)
--- NOTE | 2019-09-23 07:55 | ECHO ---
HEIGHT: 5 ft 9 in WEIGHT: 155 lb 0 oz DATE OF STUDY: 09/22/[address]: Azucena Tran MD 2-DIMENSIONAL: YES M.MODE: YES DOPPLER: YES COLOR FLOW: YES TDS: NO PORTABLE: NO DEFINITY: NO BUBBLE STUDY: NO DIAGNOSIS: CEREBRAL VASCULAR ACCIDENT/ RULE OUT VEGETATION CARDIAC HISTORY: CATHERIZATION: NO SURGERY: NO PROSTHETIC VALVE: NO PACEMAKER: NO MEASUREMENTS (cm) DIASTOLIC (NORMALS) SYSTOLIC (NORMALS) IVSd 1.1 (0.6-1.2) LA Diam 3.3 (1.9-4.0) LVEF 63% LVIDd 4.0 (3.5-5.7) LVIDs 2.6 (2.0-3.5) %FS 34% LVPWd 0.9 (0.6-1.2) Ao Diam 3.2 (2.0-3.7) 2 DIMENSIONAL ASSESSMENT: RIGHT ATRIUM: NORMAL LEFT ATRIUM: NORMAL RIGHT VENTRICLE: NORMAL LEFT VENTRICLE: NORMAL TRICUSPID VALVE: NORMAL MITRAL VALVE: NORMAL PULMONIC VALVE: NORMAL AORTIC VALVE: NORMAL PERICARDIAL EFFUSION: NONE AORTIC ROOT: NORMAL LEFT VENTRICULAR WALL MOTION: NORMAL. DOPPLER/COLOR FLOW: MILD TRICUSPID REGURGITATION. COMMENTS: MILD TRICUSPID REGURGITATION - NORMAL RIGHT VENTRICULAR SYSTOLIC PRESSURE. NORMAL LEFT VENTRICULAR SIZE AND FUNCTION. NO WALL MOTION ABNORMALITY. NO EFFUSION. NO VEGETATION. TECHNOLOGIST: SACHA KWOK
[2019-09-23] MEDS ORDERED: lisinopriL 20 MG TAB PO SCH (09:00)
[2019-09-23] MEDS: NICOTINE 21 MG/PAT TD SCH (09:57)
[2019-09-23] MEDS: ASPIRIN EC 81 MG TAB PO SCH (09:58)
[2019-09-23] MEDS: lisinopriL 20 MG TAB PO SCH (09:58)
[2019-09-23] MEDS: ENOXAPARIN 40 MG/0.4 ML SQ SCH (09:59)
[2019-09-23] MEDS: CLOPIDOGREL 75 MG TABLET PO SCH (09:59)
[2019-09-23 14:38] VITALS: BP 150/79; TEMP 97.6
== END 2019-09-23 12:35 | disposition home or self-care (01) | DRG 65 ==
LOC: ER 12:33 → ERHOLD 14:08 → 2ND 19:39 → OBSVTOIN 09-22 07:47
PROVIDERS: ADMIT Internal Medicine; ATTEND Internal Medicine
DX: I63.9 Cerebral infarction, unspecified (principal); G81.94 Hemiplegia, unspecified affecting left nondominant side; I10 Essential (primary) hypertension; E78.5 Hyperlipidemia, unspecified; F17.210 Nicotine dependence, cigarettes, uncomplicated; R29.702 NIHSS score 2; R20.0 Anesthesia of skin; R20.2 Paresthesia of skin; Z79.82 Long term (current) use of aspirin; Z86.73 Personal history of transient ischemic attack (TIA), and cerebral infarction without residual deficits; Z79.899 Other long term (current) drug therapy
CPT/HCPCS: 36415; 70450; 70553; 71045; 72125; 80048; 80053; 80061; 82947; 84443; 84484; 85025; 85610; 85730; 93005; 93306; 93880; 97161; 99285; A9577; G0378; J1650